=== PATIENT | female | born 1950 | race Two or more races ===

== ENCOUNTER 2016-07-01 22:04 | Observation (INO) | payer MEDICARE ==
--- NOTE | ~2016-07-01 | EKG ---
PATIENT: NIKA SHOOK UNIT #: [id number] Ventricular Rate: 59 BPM Atrial Rate: 59 BPM P-R Interval: 160 ms QRS Duration: 84 ms Q-T Interval: 422 ms QTC Calculation(Bezet): 417 ms P [place]: 69 degrees Calculated R [place]: 21 degrees Calculated T [place]: 17 degrees Diagnosis Line: Sinus bradycardia Diagnosis Line: Otherwise normal ECG Diagnosis Line: When compared with ECG of 02-JUL-2016 04:47, Diagnosis Line: (unconfirmed) Diagnosis Line: No significant change was found Diagnosis Line: Confirmed by MIGUEL CHAVEZ MD ([id number]) on Diagnosis Line: 07/05/2016 4:02:54 PM INTERPRETING MD: KATHY DAVID
--- NOTE | ~2016-07-01 | ST ---
Unit #: [id number] #: [id number] Patient: NIKA SHOOK [id number] [address] [address] [id number] I MR#: [id number] NAME: NIKA SHOOK : 1950 SEX: F STUDY DATE/TIME: 07/03/2016 UNIT: [facility] ROOM: 11614 STUDY DESCRIPTION: Lexiscan stress test Attending Physician: Mckay Mcintosh M.D. Primary Care Physician: Luiza Coyle M.D. CARDIOLOGY REPORT PROCEDURES PERFORMED Lexiscan Cardiolite. REASON FOR TEST Chest pain. PROCEDURE Baseline EKG shows normal sinus rhythm, rate of 67 beats per minute. The patient was initially scheduled for exercise Cardiolite stress, and this was attempted; however, due to her unsteady gait and inability to walk on the treadmill appropriately, this was stopped secondary to increased risk for fall. The patient was changed over to a Lexiscan Cardiolite. Per protocol, 0.4 mg of Lexiscan was injected, followed by Cardiolite. During the test the patient did complain of some dizziness, as well as shortness of breath. Denied any chest pain. Her blood pressure did transiently drop to 78/56, being the lowest blood pressure, but rebounded quickly. Ending blood pressure was 105/49. There were no ST or T wave changes noted during the infusion. There was no ectopy. The test was stopped secondary to protocol completion. CONCLUSIONS 1. Negative EKG portion of Lexiscan Cardiolite. 2. No ST or T wave changes suggestive of ischemia during the examination. 3. The patient did complain of dizziness and shortness of breath during the infusion. Again, blood pressure transiently dropped to 78/50s but rebounded quickly in the recovery period. The patient denied any chest pain. Ending blood pressure was 105/49, and the patient was back to baseline. 4. There were no arrhythmias. 5. Please correlate with nuclear imaging. Dictated by... Jo Flower A.P.R.N. for Min Dawn M.D. LMW/db Unit #: [id number] #: [id number] Patient: NIKA SHOOK TD: 07/03/2016 12:25 JOB #: [id number] CARDIOLOGY REPORT X Jo Flower APRN CARDIOLOGY REPORT
--- NOTE | ~2016-07-01 | EKG ---
PATIENT: NIKA SHOOK UNIT #: [id number] Ventricular Rate: 61 BPM Atrial Rate: 61 BPM P-R Interval: 166 ms QRS Duration: 80 ms Q-T Interval: 426 ms QTC Calculation(Bezet): 428 ms P [place]: 57 degrees Calculated R [place]: 27 degrees Calculated T [place]: 35 degrees Diagnosis Line: Normal sinus rhythm Diagnosis Line: Normal ECG Diagnosis Line: When compared with ECG of 01-JUL-2016 21:15, Diagnosis Line: (unconfirmed) Diagnosis Line: No significant change was found Diagnosis Line: Confirmed by MIGUEL CHAVEZ MD ([id number]) on Diagnosis Line: 07/05/2016 3:59:15 PM INTERPRETING MD: KATHY DAVID
--- NOTE | ~2016-07-01 | CO ---
Unit #: [id number] #: [id number] Patient: NIKA SHOOK [id number] [facility]. [place], [place] [address] [id number] I MR#: [id number] NAME: NIKA SHOOK. ROOM: 03924 Age: 66 Sex: F Admission Date: 07/02/2016 : 1950 Attending Physician: Mckay Mcintosh M.D. Primary Care Physician: Luiza Coyle M.D. CONSULTATION REPORT JOB NOTE: ADDENDUM ADDENDUM The patient underwent Lexiscan Cardiolite. This was reviewed by Dr. Malone. There was no stress-induced ischemia and her ejection fraction was noted to be normal. After I reviewed the patient's labs, it was noted she had elevated cholesterol with a total cholesterol of 283, triglycerides 161, and LDL of 198, HDL was 53. The patient was started on atorvastatin 40 mg p.o. daily and was provided a script for this. She currently has a 2D echocardiogram that was ordered, however, Dr. Malone states this can be canceled. The patient is stable for discharge. Her cardiac rhythm has been stable. She has had no complaints of chest pain or shortness of breath. The patient was advised to follow a low-carbohydrate low-sugar diet. She was educated on the importance of exercise, diet, and lifestyle modification. She was also counseled on the importance of smoking cessation and also the patient was advised on possible side effects of atorvastatin. She was advised to follow up with her primary care physician in 1 to 2 weeks and she will be followed up with Dr. Malone in 6 to 8 weeks. Dictated by... Selvin Ashby/taiwol TD: 07/04/2016 04:39 JOB #: [id number] CONSULTATION REPORT X Jo Flower APRN X CONSULTATION REPORT
--- NOTE | ~2016-07-01 | HP ---
Unit #: [id number] #: [id number] Patient: NIKA SHOOK [id number] [address] [place], [place] [address] [id number] I MR#: [id number] NAME: NIKA SHOOK. ROOM: 97384 Age: 66 Sex: F Admission Date: 07/02/2016 : 1950 Attending Physician: Mckay Mcintosh M.D. Primary Care Physician: Luiza Coyle M.D. HISTORY AND PHYSICAL HISTORY OF PRESENT ILLNESS This is a 66-year-old, [place] female, new to our group with no significant past medical history. The patient is on vitamin D and a multivitamin at home. She denies hypertension, hyperlipidemia, diabetes mellitus, myocardial infarction, or cerebrovascular accident. She is no followed with a reporting consultant and denies any previous testing. Risk factors for ischemic heart disease include active tobacco abuse. There is no reported family history of coronary artery disease. The patient is Peruvian speaking and no per diem interpreter is required. She presented to emergency department with complaints of chest pain. She states that the pain started yesterday. It was in her mid sternal chest and difficult to describe. She felt some numbness in her jaw. She had some blurred vision but not complete loss of vision. There was no pain in the shoulders, back or arms. There were no associated symptoms of shortness of breath. She did feel hot at the time. The pain lasted approximately 15 to 30 minutes. She called her son from work and she was brought to the emergency department. She denies any previous episodes of chest pain. She does complain of some shortness of breath with activity. She is fairly active and watches her grandson. She cooks and cleans but does not actively exercise. In the emergency department, initial cardiac enzymes were negative. CBC was unremarkable. Electrolytes and renal function were normal. D-dimer was elevated at 613. CTA of the chest was ordered and revealed no pulmonary embolus or dissection. Chest x-ray revealed no acute findings. She was admitted for chest pain and started on a low dose heparin drip. Labs revealed INR of 2.8 with unclear etiology. The patient is not on an anticoagulant at home. There is no documented history of any clotting disorders. PAST MEDICAL HISTORY Denies hypertension, hyperlipidemia, diabetes mellitus, myocardial infarction or cerebrovascular accident. Active tobacco abuse. PAST SURGICAL HISTORY Left knee arthroscopy with excision of lateral meniscal tear and synovectomy. Extensive debridement arthroplasty of medial femoral condyle and extensive debridement arthroplasty of lateral femoral condyle in 06/2003. HOME MEDICATIONS 1. Multivitamin. 2. Vitamin D with unknown dose and frequency. Unit #: [id number] #: [id number] Patient: NIKA SHOOK ALLERGIES No known drug allergies. SOCIAL HISTORY The patient lives in a private residence. She is an active smoker. Smokes up to a pack of cigarettes per day. She has smoked for over 20 years. There are no reports of alcohol or illicit drug use. FAMILY HISTORY Noncontributory for heart disease. REVIEW OF SYSTEMS Twelve point review of systems negative except for details noted above in HPI. PHYSICAL EXAMINATION VITAL SIGNS: Temperature 97.4, pulse 81, blood pressure 107/73. CONSTITUTIONAL: This is a 66-year-old Montenegrin female in no acute distress. SKIN: Warm and dry. NECK: Supple. No jugular venous distention. No hepatojugular reflux. Normal carotid upstrokes. No carotid bruits auscultated. HEART: S1 and S2. Regular rate and rhythm. No murmurs, rubs or gallops. LUNGS: Bilateral breath sounds. Have good air entry to all lung zamora. Respirations even and unlabored. No rales, rhonchi or wheezes. ABDOMEN: Soft, nontender, nondistended. Positive bowel sounds auscultated x4 quadrants. No ascites noted. EXTREMITIES: Bilateral lower extremities have no pretibial pitting edema. DP and PT pulses 2+. Capillary refill after a few seconds. DIAGNOSTIC STUDIES LABORATORY STUDIES: White blood cell count 6.1, hemoglobin 12.5, hematocrit 37.7, platelets 206. Sodium 138, potassium 4.3, chloride 105, CO2 28, BUN 17, creatinine 0.6, glucose 96. Troponin 0.03 and 0.05. INR 2.8. PTT 35.3. D-dimer is 613. IMAGING STUDIES: CTA of the chest reveals no pulmonary embolus or dissection. Mild dependent atelectasis. Chest x-ray reveals no acute findings. CARDIOVASCULAR STUDIES: Electrocardiogram reveals sinus rhythm with a ventricular rate of 61 BPM. Early repolarization noted. No acute ST or T wave changes. QTC 428 msec. IMPRESSION 1. Chest pain with questionable etiology. 2. Rule out coronary artery disease. 3. Elevated D-dimer. CTA of the chest negative for PE. 4. Active tobacco abuse. PLAN 1. The patient presented in the hospital with complaints of chest pain. Initial cardiac enzymes were negative and EKG revealed no acute findings. 2. She was admitted for further observation of chest pain. 3. CTA of the chest was completed and revealed no PE or dissection. Unit #: [id number] #: [id number] Patient: NIKA SHOOK 4. Patient has been recommended to undergo an exercise Cardiolite stress test in the morning to rule out ischemia. 5. 2D echo cardiogram will be ordered to assess LV function and valve. 6. She will be placed on a nicotine patch. She has been educated to refrain from tobacco abuse. 7. Fasting lipid profile will be ordered. 8. The patient is on heparin drip and this will be discontinued. She will be started on BTE dose of Lovenox. 9. Her INR was elevated at 2.8 and she is on home anticoagulation. Her INR will be repeated in the a.m. for further followup. Dictated by Tahmina Salazar APRN for Alondra Stewart/cecily TD: 07/02/2016 18:19 JOB #: [id number] CC: [facility] HISTORY AND PHYSICAL X X HISTORY AND PHYSICAL
--- NOTE | ~2016-07-01 | CR72 ---
[facility] A Service of [facility] RADIOLOGY TEXT RESULTS PATIENT: NIKA SHOOK LOCATION: [facility] [id number] : [birth year] UNIT #: [id number] AGE: [address]: Mckay Mcintosh MD SEX: F ORDER DR: [id number] [facility] [address] [facility]. [place], [place] [address] [id number] I MR#: [id number] Acc #: [id number] NAME: NIKA SHOOK. : 1950 SEX: F STUDY DATE/TIME: 07/01/2016 22:05 UNIT: CED ROOM: 35748 STUDY DESCRIPTION: CR Chest Single View Portable Attending Physician: Mckay Mcintosh M.D. Ordering Physician: Mayur Michelle M.D. Primary Care Physician: Luiza Coyle M.D. MEDICAL IMAGING REPORT This report is preliminary unless electronic signature is present EXAM Portable chest. DATE OF EXAM 07/01/2016 INDICATION Chest pain and shortness of air for 2 hours. FINDINGS A portable view of the chest was obtained. The heart size and vascularity are normal, and the lungs are clear. The bones are unremarkable. IMPRESSION No active disease. Dictated by... Daniel Kendrick M.D. THIS IS AN ELECTRONICALLY VERIFIED REPORT Daniel Kendrick M.D. at 07/02/2016 4:33 PM CHIARA/elissa TD: 07/02/2016 16:14 JOB #: [id number] MEDICAL IMAGING REPORT COPY
--- NOTE | ~2016-07-01 | CT16 ---
[facility] A Service of [facility] RADIOLOGY TEXT RESULTS PATIENT: NIKA SHOOK LOCATION: [facility] [address]-96 : [birth year] UNIT #: [id number] AGE: [address]: Mckay Mcintosh MD SEX: F ORDER DR: [id number] [facility] [address] [facility]. [place], [place] [address] [id number] I MR#: [id number] Acc #: [id number] NAME: NIKA SHOOK. : 1950 SEX: F STUDY DATE/TIME: 07/02/2016 00:49 UNIT: [facility] ROOM: 46414 STUDY DESCRIPTION: CT Angio Chest for PE Attending Physician: Mckay Mcintosh M.D. Ordering Physician: Mayur Michelle M.D. Primary Care Physician: Luiza Coyle M.D. MEDICAL IMAGING REPORT This report is preliminary unless electronic signature is present EXAM Chest CTA, 07/02 at 00:49 hours INDICATION Chest pain for the last 4 hours today. Pain with deep inspiration. TECHNIQUE Axial images were obtained through the chest following IV contrast administration. 3-D reformats were obtained. This CT exam was performed with one or more of the following radiation dose reduction techniques: automatic exposure control, adjustment of mA and/or kV according to patient size, and iterative reconstruction. COMPARISON No comparison. FINDINGS There is no pulmonary embolism or aortic dissection. There is no pleural or pericardial effusion. There is no adenopathy. There is some dependent atelectasis in the lower lobes. The lungs otherwise are clear. The upper abdomen demonstrates a small right renal cyst. IMPRESSION 1. No pulmonary embolism or aortic dissection. 2. The lungs are clear except for some minimal dependent atelectasis in the lower lobes. Dictated by... Terrence Hebert Jr., M.D. THIS IS AN ELECTRONICALLY VERIFIED REPORT Terrence Hebert Jr., M.D. at 07/02/2016 11:00 PM [facility] A Service of [facility] RADIOLOGY TEXT RESULTS PATIENT: NIKA SHOOK [facility] [id number] : [birth year] UNIT #: [id number] AGE: [address]: Mckay Mcintosh MD SEX: F ORDER DR: FRANCESCA/mannie TD: 07/02/2016 16:34 JOB #: [id number] MEDICAL IMAGING REPORT COPY
--- NOTE | ~2016-07-01 | EKG ---
PATIENT: NIKA SHOOK UNIT #: [id number] Ventricular Rate: 70 BPM Atrial Rate: 70 BPM P-R Interval: 156 ms QRS Duration: 80 ms Q-T Interval: 396 ms QTC Calculation(Bezet): 427 ms P [place]: 55 degrees Calculated R [place]: 1 degrees Calculated T [place]: 21 degrees Diagnosis Line: Normal sinus rhythm Diagnosis Line: Possible Left atrial enlargement Diagnosis Line: Borderline ECG Diagnosis Line: No previous ECGs available Diagnosis Line: Confirmed by MIGUEL CHAVEZ MD ([id number]) on Diagnosis Line: 07/05/2016 3:57:49 PM INTERPRETING MD: KATHY DAVID
--- NOTE | ~2016-07-01 | TH ---
Unit #: [id number] #: [id number] Patient: BOUCHRA MAHER [id number] [address] [address] [id number] I MR#: [id number] NAME: NIKA SHOOK. : 1950 SEX: F STUDY DATE/TIME: UNIT: [facility] ROOM: 79363 STUDY DESCRIPTION: Nuclear Study Attending Physician: Mckay Mcintosh M.D. Primary Care Physician: Luiza Coyle M.D. CARDIOLOGY REPORT EXAM Lexiscan Cardiolite Stress Test - Nuclear Portion PROCEDURE Using technetium 99m labeled Cardiolite, rest and stress SPECT images were obtained. Multiple SPECT images were obtained in various views including horizontal and vertical long axis and short axis views of the left ventricle. Images were obtained by gated SPECT method. The patient was administered 10.45 mCi of Cardiolite at rest. The patient was administered 31.1 mCi of Cardiolite after Lexiscan infusion was completed. On the stress images, there is normal perfusion noted. The rest images show normal perfusion. Comparing rest and stress images, there is no stress-induced ischemia noted. The left ventricular ejection fraction is calculated to be 69%. There is no focal wall motion abnormality seen. The left ventricular size is small. CONCLUSION 1. No stress-induced ischemia noted. 2. The left ventricular ejection fraction is calculated to be 69%. 3. There is no focal wall motion abnormality seen. 4. Normal Lexiscan Cardiolite Stress Test. 5. The left ventricular size is small. Dictated by... Alondra Crawford TD: 07/04/2016 12:39 JOB #: [id number] Unit #: [id number] #: [id number] Patient: BOUCHRA MAHER CARDIOLOGY REPORT X Ileana Ren MD <ELECTRONICALLY SIGNED> 11/19/16 1429 CARDIOLOGY REPORT
[2016-07-01 22:45] LABS: BASOPHIL% 0.5 % (0-2.5); EOSINOPHIL# 0.1 X10e3 (0-0.7); EOSINOPHIL% 1.4 % (0.0-7.0); HEMATOCRIT 37.7 % (35.0-45.0); HEMOGLOBIN 12.5 gm/dL (12.0-16.0); LYMPHOCYTE# 1.1 X10e3 (1.0-3.5); LYMPHOCYTE% 18.8 % (17.0-45.0); MEAN CELL VOLUME 88.5 FL (83-96); MEAN CORPUSCULAR HEMOGLOBIN 29.3 PG (28-34); MEAN CORPUSCULAR HGB CONC 33.1 g/dL (30-36); MEAN PLATELET VOLUME 7.8 FL (6.5-11.5); MONOCYTE# 0.5 X10e3 (0-1.0); MONOCYTE% 7.7 % (3.0-12.0); NEUTROPHIL# 4.4 X10e3 (1.5-7.1); NEUTROPHIL% 71.6 % (40-75); PLATELET COUNT 206 X10e3 (140-420); RED BLOOD COUNT 4.26 X10e (3.90-5.30); WHITE BLOOD COUNT 6.1 X10e3 (4.0-10.5)
[2016-07-01 22:49] LABS: DIFF IND NO
[2016-07-01 22:52] LABS: POC - CKMB <1.0 ng/mL (0.0-7.9); POC - TROPONIN <0.05 ng/mL (<=0.05)
[2016-07-01 23:09] LABS: ALBUMIN SERUM 4.3 g/dL (3.5-5.0); ALKALINE PHOSPHATASE 77 U/L (32-92); ALT (SGPT) 30 U/L (10-40); AST (SGOT) 30 U/L (10-42); BILIRUBIN,TOTAL 0.5 mg/dL (0.2-2.0); BLOOD UREA NITROGEN 17 mg/dL (9-23); BUN/CREATININE RATIO 28.33; CALCIUM SERUM 9.5 mg/dL (8.4-10.2); CARBON DIOXIDE 28 mmol/L (22-31); CHLORIDE 105 mmol/L (100-111); CREATININE SERUM 0.6 mg/dL (0.6-1.4); GLOM FILT RATE Estimated ABOVE60 mL/min (>60); GLUCOSE FASTING 96 mg/dL (70-110); POTASSIUM 4.3 mmol/L (3.5-5.1); PROTEIN TOTAL SERUM 8.1 g/dL (6.0-8.3); SODIUM 138 mmol/L (135-145)
[2016-07-01 23:15] LABS: BILIRUBIN, DIRECT <0.1 mg/dL (0.0-0.2); BILIRUBIN,INDIRECT 0.4 mg/dL (0.0-0.9)
[2016-07-02] MEDS ORDERED: VITAMIN D400 UNI1 PO (00:04)
[2016-07-02] MEDS ORDERED: GLUCOSAMINE500 M1 PO (00:05)
[2016-07-02 00:36] LABS: POC - CKMB <1.0 ng/mL (0.0-7.9); POC - TROPONIN <0.05 ng/mL (<=0.05)
[2016-07-02 04:25] LABS: INR 2.8; PARTIAL THROMBOPLASTIN TIME 36.4 SECONDS (23.5-31.3); PROTHROMBIN TIME (PATIENT) 30.1 SECONDS (9.6-11.5)
[2016-07-03 05:42] LABS: BASOPHIL% 0.5 % (0-2.5); EOSINOPHIL# 0.1 X10e3 (0-0.7); EOSINOPHIL% 1.4 % (0.0-7.0); HEMATOCRIT 36.7 % (35.0-45.0); HEMOGLOBIN 12.1 gm/dL (12.0-16.0); LYMPHOCYTE# 1.3 X10e3 (1.0-3.5); MEAN CELL VOLUME 87.9 FL (83-96); MEAN CORPUSCULAR HEMOGLOBIN 28.9 PG (28-34); MEAN CORPUSCULAR HGB CONC 32.9 g/dL (30-36); MEAN PLATELET VOLUME 7.8 FL (6.5-11.5); MONOCYTE# 0.4 X10e3 (0-1.0); MONOCYTE% 8.4 % (3.0-12.0); NEUTROPHIL# 2.9 X10e3 (1.5-7.1); NEUTROPHIL% 61.7 % (40-75); PLATELET COUNT 188 X10e3 (140-420); RED BLOOD COUNT 4.17 X10e (3.90-5.30); RED CELL DISTRIBUTION WIDTH 14.1 % (11.0-15.5); WHITE BLOOD COUNT 4.6 X10e3 (4.0-10.5)
[2016-07-03 05:43] LABS: DIFF IND NO
[2016-07-03 05:58] LABS: PROTHROMBIN TIME (PATIENT) 10.4 SECONDS (9.6-11.5)
[2016-07-03 06:28] LABS: BLOOD UREA NITROGEN 24 mg/dL (9-23); CALCIUM SERUM 9.1 mg/dL (8.4-10.2); CARBON DIOXIDE 26 mmol/L (22-31); CHLORIDE 107 mmol/L (100-111); CREATININE SERUM 0.5 mg/dL (0.6-1.4); GLOM FILT RATE Estimated ABOVE60 mL/min (>60); GLUCOSE FASTING 101 mg/dL (70-110); POTASSIUM 3.6 mmol/L (3.5-5.1); SODIUM 139 mmol/L (135-145)
[2016-07-03 06:43] LABS: CHOLESTEROL 283 mg/dL (0-200); HDL CHOLESTEROL 53 mg/dL (35-95); LDL/HDL RATIO 4 RATIO (0-4); TRIGLYCERIDES 161 mg/dL (10-160)
[2016-07-03 06:45] LABS: LDL CHOLESTEROL 198 mg/dL ([, -130])
== END 2016-07-03 14:20 | disposition home or self-care (01) ==
LOC: CED 22:04 → CEDOF 07-02 02:34
PROVIDERS: Emergency Medicine; Internal Medicine Cardiovascular Disease
DX: R07.89 Other chest pain (principal); I08.1 Rheumatic disorders of both mitral and tricuspid valves; J98.11 Atelectasis; E78.5 Hyperlipidemia, unspecified; F17.210 Nicotine dependence, cigarettes, uncomplicated; R79.1 Abnormal coagulation profile; Z98.890 Other specified postprocedural states
CPT/HCPCS: 36415; 71010; 71275; 78452; 80048; 80061; 80076; 82553; 84484; 85025; 85379; 85610; 85730; 93005; 93017; 93306; 96372; 99285; A9500; G0378; J1644; J1650; J2785; Q9967